=== PATIENT | male | born 1980 | race American Indian/Alaskan Native ===

== ENCOUNTER 2018-10-05 20:55 | Emergency (ER) | payer OTHER ==
[2018-10-05 21:13] VITALS: BP 135/81
--- NOTE | 2018-10-05 21:20 | Emergency Department Report ---
ED Rash [facility] Chief Complaint: Skin Rash Stated Complaint: BOTH HANDS PAIN Time Seen by Provider: 10/05/18 21:12 Location: Upper Extremities (bilateral fingers) Suspected Cause: Unknown Rash Symptoms: Yes Blistering, No Itching, No Facial Swelling, No Tongue/Oral Swelling, No Breathing Difficulties, No Choking Sensation, No Wheezing/Dyspnea, No Peeling, No Fever, No Lightheaded, No Malaise, No Myalgias Severity: mild ED Review of Systems ROS: Stated complaint: BOTH HANDS PAIN Other details as noted in HPI ED Past Medical Hx - Past Medical History Previous Medical History?: No - Surgical History Past Surgical History?: No - Social History Smoking Status: Current Every Day Smoker Substance Use Type: Alcohol - Medications Home Medications: Home Medications Medication Instructions Recorded Confirmed Last Taken Type Betamethasone Valerate 1 applicatio TP BID #1 tube 10/05/18 Unknown Rx [Betamethasone Valerate 0.1% Oint] cephALEXin [Keflex] 500 mg PO Q12HR #14 cap 10/05/18 Unknown Rx methylPREDNISolone [Medrol 4MG 4 mg PO DAILY #1 tab.ds.pk 10/05/18 Unknown Rx DOSEPAK (21 tabs)] Rash Exam - Exam General: Vital signs noted. No distress. Alert and acting appropriately. HEENT: No Periorbital Edema, No Conjuctival Injection, No Chemosis, No Perioral Edema, No Tongue Edema, No Uvular Edema, No Compromised Airway, No Drooling Lungs: Yes Good Air Exchange, No Wheezes, No Ronchi, No Stridor, No Cough, No Labored Respirations, No Retractions, No Use of Accessory Muscles, No Other Abnormal Lung Sounds ED Course Vital Signs 10/05/18 21:09 Temperature 98.2 F Pulse Rate 61 Respiratory 18 Rate Blood Pressure 135/81 O2 Sat by Pulse 99 Oximetry ED Medical Decision Making - Medical Decision Making 38 y o male presents to ED with dry cracked type rash to his fingers Pt was given antibiotic therapy with oral steroid and follow up intructions - Differential Diagnosis 1. Impetigo 2. eczema 3. dermatitis Critical care attestation.: If time is entered above; I have spent that time in minutes in the direct care of this critically ill patient, excluding procedure time. ED Disposition Clinical Impression: Rash and nonspecific skin eruption Disposition: TO HOME OR SELFCARE Is pt being admited?: No Does the pt Need Aspirin: No Condition: Stable Instructions: Impetigo (ED), Urticaria (ED) Additional Instructions: follow up with [facility] in 3-5 days take medication as prescribed Return if worsening symptoms Prescriptions: Betamethasone Valerate [Betamethasone Valerate 0.1% Oint] 1 applicatio TP BID #1 tube cephALEXin [Keflex] 500 mg PO Q12HR #14 cap methylPREDNISolone [Medrol 4MG DOSEPAK (21 tabs)] 4 mg PO DAILY #1 tab.ds.pk Referrals: PRIMARY CARE, [Primary Care Provider] - 3-5 Days [facility] [Outside] - 3-[address] [facility] [Outside] - 3-5 Days [facility] [Provider Group] - 3-5 Days Forms: Accompanied Note, Work/School Release Form(ED) Time of Disposition: 21:50
== END 2018-10-05 22:05 | disposition home or self-care (01) ==
LOC: ED 20:55
DX: R21 Rash and other nonspecific skin eruption (principal); F17.200 Nicotine dependence, unspecified, uncomplicated
CPT/HCPCS: 99282